=== PATIENT | female | born 1995 | race American Indian/Alaskan Native ===

== ENCOUNTER 2020-11-15 10:24 | Inpatient (IN) | payer OTHER ==
[2020-11-15] MEDS ORDERED: LACTATED RINGERS 1,000 ML IV SCH (11:30)
[2020-11-15 12:09] LABS: Bacteria,Urine 4+ /HPF (Negative); Bilirubin,Urine NEG (Negative); Blood,Urine MOD (Negative); Color,Urine Amber (Yellow); Mucus,Urine 1+ /HPF; Urobilinogen,Urine < 2.0 mg/dL (<2.0)
[2020-11-15] MEDS ORDERED: hydrALAZINE 20 MG/1 ML INJ IV PRN (12:14)
[2020-11-15 12:27] LABS: Protein,Urine >500 mg/dL (Negative)
[2020-11-15] MEDS ORDERED: MAGNESIUM SULFATE 4 GM/100 ML BAG IV ONE (12:30)
--- NOTE | 2020-11-15 12:45 | History and Physical Report ---
History of Present Illness Date of examination: 11/15/20 Date of admission: 11/15/2020 Chief complaint: I was feeling dehydrated and I was having some nausea. History of present illness: Pt is a very poor historian. She has given many different versions of her pregna ncy, medical, and surgical history. She is a @ 23.5 wks by stated LMP (June 02, 2020). Previous c-sections X1 both in 2017. States for all pregnancies she had pre eclampsia, but never was diagnosed with cHTN. She has not had care this . According to the patient she visited an office one time for this and was given an EDC of February 152020. This provider was called, and they stated that they told the patient that she needed to have a complete scan. An EDC was not assigned. Her OB history is a follows: 1. 2017 @ 24 wks d/t elevated blood pressure, demise 2. 2016 c- section @ 28 wks d/t elevated blood pressures. 3. 2019 SAB @ 8wks, no D&C, was discharged home 4. January 2020 which patient states that she was seen by MD for her visit. She does not remember gestational age of this . She was told during that visit that she had high blood pressure and was sent over to the hospital. While at the hospital patient states that she had a demise of twins. States that she was admitted for 2 or 3 days and then sent home. 5. Cu rrent . Pt was prescribed 300mg Labetalol and Procardia (does not remember dosage). She states that she only refilled her Labetalol and has not taken it in 4 days because she has been nauseous. She denies BEAN SORTER history/abnormal PAP, and other medical history. Her other surgical history inc luded a cholesectomy. Admits to smoking marijuana. After review of her records from previous delivery which occurred in 2018: she presented to L&D with a c/o abdominal pain in July. U/s was performed and she was diagnosed with an IUFD. She was measuring 19 wks via u/s, but clinically she was supposed to be 28.1 wks. She delivered vaginally. After delivery she was diagnosed with an sepsis, endometritis, and bactermia. She also had high blood pressure during that admission. Still awaiting records for c-sections that occurred in 2017. Past History Past Medical History: hypertension (Possible HTN outside of ) Past Surgical History: cholecystectomy, section (X2, 2017) Family/Genetic History: none Social history: single, smoking (Marijuana) - Obstetrical History Expected Date of Delivery: 02/15/21 (Per patient, date given 2-3 wks ago) Actual Gestation: 26 Week(s) 6 Day(s) : 5 Para: 4 Hx # Term Pregnancies: 0 Number of Pregnancies: 2 Spontaneous Abortions: 1 Induced : 0 Number of Living Children: 1 Medications and Allergies Allergies Allergy/AdvReac Type Severity Reaction Status Date / Time No Known Allergies Allergy Verified 11/15/20 11:20 Active Meds: Active Medications Betamethasone Acet/Betameth SodPhos (Betamet Acet/Betamet Na Ph 6 Mg/Ml Inj 5 Ml Mdv) 12 mg IM Q24H LISANDRO Stop: 11/16/20 13:01 Hydralazine HCl (Hydralazine 20 Mg/1 Ml Inj) 10 mg IV ONCE PRN PRN Reason: Hypertension Lactated Ringer's (Lactated Ringers) 1,000 mls @ 125 mls/hr IV DIRECT LISANDRO Magnesium Sulfate (Magnesium Sulfate 4gm/100ml) 4 gm in 100 mls @ 300 mls/hr IV ONCE ONE Stop: 11/15/20 12:49 Magnesium Sulfate (Magnesium Sulfate 40gm/1000ml) 40 gm in 1,000 mls @ 50 mls/hr IV DIRECT LISANDRO Labetalol HCl (Labetalol 100 Mg Tab) 300 mg PO TID LISANDRO Review of Systems All systems: negative - Vital Signs Vital signs: Vital Signs Temp Pulse Resp BP Pulse Ox 98.8 F 74 20 166/116 97 11/15/20 11:20 11/15/20 11:20 11/15/20 11:20 11/15/20 11:20 11/15/20 11:20 Temp Pulse Resp BP Pulse Ox 98.8 F 60 20 180/113 100 11/15/20 11:20 11/15/20 12:38 11/15/20 11:20 11/15/20 12:38 11/15/20 12:37 Pt denies JOHNSON, blurred vision, spots before her eyes, chest pain, shortness of breath, and upper abdominal pain. She also denies LOF, ctxs, and vaginal bleeding. Dr. Tapia aware of patient and orders placed. Will admit to labor and delivery for mag, 24 hour urine, pre eclampsia labs, and magnesium infusion. - Physical Exam Breasts: Positive: deferred Cardiovascular: Normal S1, Normal S2 Lungs: Positive: Clear to auscultation Abdomen: Positive: normal appearance, soft Genitourinary (Female): Positive: normal external genitalia, normal perenium Vulva: both: normal Vagina: Positive: normal moisture Uterus: Positive: normal size Extremities: Positive: normal Deep Tendon Reflex Grade: Normal +2 - Obstetrical FHR: category 2 (While in triage a 3 minute deceleration was noted, with recovery to baseline.) Cervical Dilatation: 0 (per Dr. Tapia) Cervical Effacement Percentage: 50 station: -4 Uterine Contraction Pattern: Regular Uterine Tone Measurement Phase: Resting Uterine Contraction Intensity: Mild Results Result Diagrams: 11/15/20 14:13 11/15/20 14:13 Abnormal lab results 11/15/20 Range/Units Unknown Urine WBC (Auto) 71.0 H (0.0-6.0) /HPF U Epithel Cells (Auto) 19.0 H (0-13.0) /HPF All other labs normal. Pre eclamspia and labs drawn on admission. Assessment and Plan A: 25 y.o. @ 26.6 wks gestation (per patient), elevated blood pressures, no pre nichol care. - Patient Problems (1) No care in current Onset Date: ~11/15/20 Current Visit: Yes Status: Acute Qualifiers: Trimester: second trimester Qualified Code(s): O09.32 - Supervision of with insufficient care, second trimester Plan to address problem: Case management consult ordered. (2) Elevated blood pressure affecting , antepartum Onset Date: ~11/15/20 Current Visit: Yes Status: Acute Plan to address problem: Admit to labor and delivery. Initiate IV, and IV fluids. Draw and pre eclampsia labs. Magnesium infusion to started. Montalvo catheter to be placed. Steroids ordered. 24 hour urine to be started. (3) with 23 completed weeks gestation Onset Date: ~11/15/20 Current Visit: Yes Status: Acute Plan to address problem: Per LMP patient is 23.5 wks, but 26.6 wks by stated EDC given. Ultrasound ordered.
[2020-11-15] MEDS ORDERED: BETAMET ACET/BETAMET NA PH 6 MG/ML INJ 5 ML MDV IM SCH (13:00)
[2020-11-15 13:04] LABS: Amphetamine Screen,Urine Negative; Benzodiazepines Screen,Urine Negative; Cocaine Screen,Urine Negative; Methadone Screen,Urine Negative; Opiate Screen,Urine Negative
[2020-11-15 13:21] LABS: Cannabinoid Screen,Urine PRESUMPTIVE POSITIVE
[2020-11-15] MEDS: LACTATED RINGERS 1,000 ML IV SCH (13:23)
[2020-11-15] MEDS: MAGNESIUM SULFATE 40GM/1000ML 40 GM/1,000 ML BAG IV SCH (13:36)
[2020-11-15] MEDS ORDERED: hydrALAZINE 20 MG/1 ML INJ IV SCH (14:00)
[2020-11-15 14:40] LABS: Hematocrit 36.8 % (30.3-42.9); Hemoglobin 12.3 gm/dl (10.1-14.3); Mean Corpuscular HGB Conc 33 % (30-34); Mean Corpuscular Volume 82 fl (79-97); Platelet Count 173 K/mm3 (140-440); Red Blood Count 4.49 M/mm3 (3.65-5.03); Red Cell Distribution Width 15.8 % (13.2-15.2)
--- NOTE | 2020-11-15 14:59 | Ultrasound Report ---
ULTRASOUND OBSTETRIC INDICATION / CLINICAL INFORMATION: WELL BEING, EFW, ELEVATED BP. Clinical Gestational Age (GA): 26 weeks 6 days TECHNIQUE: Transabdominal. COMPARISON: None available. FINDINGS: There is a single intrauterine . Biparietal Diameter = 5.96 cm = 24 weeks, 2 day(s). Head Circumference = 21.14 cm = 23 weeks, 1 day(s). Abdominal Circumference = 18.64 cm = 23 weeks, 3 day(s). Femur Length = 4.25 cm = 23 weeks, 6 day(s). Average Ultrasound Age (AUA) = 23 weeks, 5 day(s). Heart Rate: 139 beats per minute. Estimated Weight in grams (if calculated): 612 g Estimated Weight Growth Percentile (if calculated): Not calculated Position: cephalic. Placenta: anterior and free of the os. Amniotic Fluid Volume: normal Amniotic Fluid Index (MANUEL) in cm (if calculated): 17.0. IMPRESSION: 1. Single, living intrauterine with estimated sonographic age of 23 weeks, 5 day(s). No so nographic abnormality identified, though detailed anatomic survey was not performed. Signer Name: Maris Navarro MD Signed: 11/15/2020 2:54 PM Workstation Name: [id number]
[2020-11-15 15:00] LABS: Alanine Aminotransferase 12 units/L (7-56); Uric Acid 6.8 mg/dL (3.5-7.6)
[2020-11-15] MEDS ORDERED: ACETAMINOPHEN 500 MG TAB PO PRN (15:23)
[2020-11-15 15:29] LABS: Hepatitis C Virus Antibody Non-Reactive (NonReactive)
[2020-11-16] MEDS ORDERED: ALUM-MAG HYDROXIDE-SIMETHICONE 200-200-20MG/5ML ORAL LIQD 30 ML PO PRN (00:20)
--- NOTE | 2020-11-16 00:30 | Event Note ---
Date: 11/16/20 (Pt is drowsy. ) Was told by RN that patient had c/o a JOHNSON and was very drowsy. Mag level was drawn and awaiting results. Will turn magnesium infusion down to 1 gm for now and continue to monitor.
--- NOTE | 2020-11-16 01:26 | Event Note ---
Date: 11/16/20 (Mag level 8) Was informed by RN that the magnesium level was 8. Will turn off magnesium infusion for now and continue to monitor mag levels. Went to room to exam patient. She is drowsy, but ar
--- NOTE | 2020-11-16 01:29 | Progress Note ---
Assessment and Plan A: 25 y.o. no care @ 23.5 wks, elevated blood pressures, on magnesium infusion. Mag level 8. P: Magnesium turned off at this time. Continue to assess for I&O's, alertness, reflexes. Will reassess mag level at 4am. - Patient Problems (1) No care in current Onset Date: ~11/15/20 Current Visit: Yes Status: Acute Qualifiers: Trimester: second trimester Qualified Code(s): O09.32 - Supervision of with insufficient care, second trimester (2) Elevated blood pressure affecting , antepartum Onset Date: ~11/15/20 Current Visit: Yes Status: Acute (3) with 23 completed weeks gestation Onset Date: ~11/15/20 Current Visit: Yes Status: Acute Subjective - Subjective Date of service: 11/16/20 (Mag level of 8.) Principal diagnosis: IUP @ 23.6 wks by LMP and triage u/s on 11/15 Objective - Vital Signs Vital Signs: Vital Signs - 12hr 11/15/20 11/15/20 11/15/20 13:33 13:38 13:40 Temperature Pulse Rate 103 H 93 H 96 H Respiratory Rate Blood Pressure 162/101 Blood Pressure [Left] O2 Sat by Pulse 98 98 Oximetry 11/15/20 11/15/20 11/15/20 13:43 13:48 13:53 Temperature Pulse Rate 83 86 91 H Respiratory Rate Blood Pressure 165/101 Blood Pressure [Left] O2 Sat by Pulse 98 98 99 Oximetry 11/15/20 11/15/20 11/15/20 13:58 14:03 14:08 Temperature Pulse Rate 86 94 H 84 Respiratory Rate Blood Pressure 146/89 Blood Pressure [Left] O2 Sat by Pulse 98 98 98 Oximetry 11/15/20 11/15/20 11/15/20 14:13 14:18 14:23 Temperature Pulse Rate 87 89 93 H Respiratory Rate Blood Pressure 134/78 Blood Pressure [Left] O2 Sat by Pulse 98 98 99 Oximetry 11/15/20 11/15/20 11/15/20 14:28 14:33 14:38 Temperature Pulse Rate 83 80 68 Respiratory Rate Blood Pressure 129/77 Blood Pressure [Left] O2 Sat by Pulse 99 98 98 Oximetry 03/16/21 03/16/21 03/16/21 14:43 14:48 14:53 Temperature Pulse Rate 67 70 84 Respiratory Rate Blood Pressure Blood Pressure [Left] O2 Sat by Pulse 98 98 98 Oximetry 11/15/20 11/15/20 11/15/20 14:58 15:03 15:08 Temperature Pulse Rate 64 82 76 Respiratory Rate Blood Pressure Blood Pressure [Left] O2 Sat by Pulse 99 99 99 Oximetry 11/15/20 11/15/20 11/15/20 15:13 15:18 15:19 Temperature Pulse Rate 69 74 62 Respiratory Rate Blood Pressure 134/90 Blood Pressure [Left] O2 Sat by Pulse 99 99 Oximetry 11/15/20 11/15/20 11/15/20 15:23 15:28 15:33 Temperature Pulse Rate 83 64 66 Respiratory Rate Blood Pressure Blood Pressure [Left] O2 Sat by Pulse 99 99 99 Oximetry 11/15/20 11/15/20 11/15/20 15:38 15:43 15:48 Temperature Pulse Rate 66 75 76 Respiratory Rate Blood Pressure Blood Pressure [Left] O2 Sat by Pulse 99 99 99 Oximetry 11/15/20 11/15/20 11/15/20 15:49 15:53 15:58 Temperature 98.0 F Pulse Rate 70 70 79 Respiratory 18 Rate Blood Pressure 137/87 Blood Pressure 137/87 [Left] O2 Sat by Pulse 99 99 99 Oximetry 11/15/20 11/15/20 11/15/20 16:03 16:08 16:13 Temperature Pulse Rate 70 76 76 Respiratory Rate Blood Pressure Blood Pressure [Left] O2 Sat by Pulse 99 99 99 Oximetry 11/15/20 11/15/20 11/15/20 16:18 16:20 16:23 Temperature Pulse Rate 80 63 72 Respiratory Rate Blood Pressure 142/88 Blood Pressure [Left] O2 Sat by Pulse 99 99 Oximetry 11/15/20 11/15/20 11/15/20 16:28 16:33 16:38 Temperature Pulse Rate 65 72 65 Respiratory Rate Blood Pressure Blood Pressure [Left] O2 Sat by Pulse 98 98 98 Oximetry 11/15/20 11/15/20 11/15/20 16:43 16:48 16:49 Temperature Pulse Rate 67 66 71 Respiratory Rate Blood Pressure 140/84 Blood Pressure [Left] O2 Sat by Pulse 97 98 Oximetry 11/15/20 11/15/20 11/15/20 16:53 16:58 17:03 Temperature Pulse Rate 66 67 72 Respiratory Rate Blood Pressure Blood Pressure [Left] O2 Sat by Pulse 98 98 98 Oximetry 11/15/20 11/15/20 11/15/20 17:08 17:13 17:18 Temperature Pulse Rate 69 71 60 Respiratory Rate Blood Pressure Blood Pressure [Left] O2 Sat by Pulse 98 98 98 Oximetry 11/15/20 11/15/20 11/15/20 17:20 17:23 17:28 Temperature Pulse Rate 66 65 71 Respiratory Rate Blood Pressure 136/85 Blood Pressure [Left] O2 Sat by Pulse 98 98 Oximetry 11/15/20 11/15/20 11/15/20 17:33 17:38 17:43 Temperature Pulse Rate 95 H 59 L 75 Respiratory Rate Blood Pressure Blood Pressure [Left] O2 Sat by Pulse 97 99 98 Oximetry 11/15/20 11/15/20 11/15/20 17:48 17:49 17:53 Temperature Pulse Rate 69 68 66 Respiratory Rate Blood Pressure 132/86 Blood Pressure [Left] O2 Sat by Pulse 98 98 Oximetry 11/15/20 11/15/20 11/15/20 17:58 18:03 18:08 Temperature Pulse Rate 69 67 75 Respiratory Rate Blood Pressure Blood Pressure [Left] O2 Sat by Pulse 98 98 98 Oximetry 11/15/20 11/15/20 11/15/20 18:13 18:18 18:19 Temperature Pulse Rate 81 82 71 Respiratory Rate Blood Pressure 134/84 Blood Pressure [Left] O2 Sat by Pulse 98 98 Oximetry 11/15/20 11/15/20 11/15/20 18:23 18:28 18:33 Temperature Pulse Rate 72 70 72 Respiratory Rate Blood Pressure Blood Pressure [Left] O2 Sat by Pulse 98 98 98 Oximetry 11/15/20 11/15/20 11/15/20 18:38 18:43 18:48 Temperature Pulse Rate 72 70 67 Respiratory Rate Blood Pressure Blood Pressure [Left] O2 Sat by Pulse 98 98 98 Oximetry 11/15/20 11/15/20 11/15/20 18:49 18:53 18:58 Temperature Pulse Rate 77 60 65 Respiratory Rate Blood Pressure 133/85 Blood Pressure [Left] O2 Sat by Pulse 98 98 Oximetry 11/15/20 11/15/20 11/15/20 19:00 19:03 19:08 Temperature 97.6 F Pulse Rate 62 61 Respiratory 18 Rate Blood Pressure Blood Pressure [Left] O2 Sat by Pulse 99 98 98 Oximetry 11/15/20 11/15/20 11/15/20 19:13 19:18 19:19 Temperature Pulse Rate 64 66 67 Respiratory Rate Blood Pressure 134/85 Blood Pressure [Left] O2 Sat by Pulse 98 98 Oximetry 11/15/20 11/15/20 11/15/20 19:23 19:28 19:33 Temperature Pulse Rate 69 65 68 Respiratory Rate Blood Pressure Blood Pressure [Left] O2 Sat by Pulse 98 98 99 Oximetry 11/15/20 11/15/20 11/15/20 19:38 19:43 19:48 Temperature Pulse Rate 71 72 72 Respiratory Rate Blood Pressure Blood Pressure [Left] O2 Sat by Pulse 99 99 99 Oximetry 11/15/20 11/15/20 11/15/20 19:49 19:53 19:58 Temperature Pulse Rate 77 87 70 Respiratory Rate Blood Pressure 144/86 Blood Pressure [Left] O2 Sat by Pulse 99 100 Oximetry 11/15/20 11/15/20 11/15/20 20:03 20:08 20:13 Temperature Pulse Rate 64 72 88 Respiratory Rate Blood Pressure Blood Pressure [Left] O2 Sat by Pulse 98 98 99 Oximetry 11/15/20 11/15/20 11/15/20 20:18 20:21 20:23 Temperature Pulse Rate 88 73 81 Respiratory Rate Blood Pressure 140/90 Blood Pressure [Left] O2 Sat by Pulse 98 98 Oximetry 11/15/20 11/15/20 11/15/20 20:28 20:33 20:38 Temperature Pulse Rate 67 75 68 Respiratory Rate Blood Pressure Blood Pressure [Left] O2 Sat by Pulse 99 99 98 Oximetry 11/15/20 11/15/20 11/15/20 20:43 20:48 20:49 Temperature Pulse Rate 78 73 74 Respiratory Rate Blood Pressure 136/85 Blood Pressure [Left] O2 Sat by Pulse 99 99 Oximetry 11/15/20 11/15/20 11/15/20 20:53 20:58 21:00 Temperature Pulse Rate 79 85 Respiratory 16 Rate Blood Pressure Blood Pressure [Left] O2 Sat by Pulse 98 98 100 Oximetry 11/15/20 11/15/20 11/15/20 21:03 21:08 21:13 Temperature Pulse Rate 80 76 78 Respiratory Rate Blood Pressure Blood Pressure [Left] O2 Sat by Pulse 98 98 99 Oximetry 11/15/20 11/15/20 11/15/20 21:18 21:19 21:23 Temperature Pulse Rate 69 78 86 Respiratory Rate Blood Pressure 134/90 Blood Pressure [Left] O2 Sat by Pulse 98 98 Oximetry 11/15/20 11/15/20 11/15/20 21:28 21:33 21:38 Temperature Pulse Rate 90 81 73 Respiratory Rate Blood Pressure Blood Pressure [Left] O2 Sat by Pulse 100 99 99 Oximetry 11/15/20 11/15/20 11/15/20 21:43 21:48 21:50 Temperature Pulse Rate 72 68 79 Respiratory Rate Blood Pressure 135/84 Blood Pressure [Left] O2 Sat by Pulse 99 99 Oximetry 11/15/20 11/15/20 11/15/20 21:53 21:58 22:03 Temperature Pulse Rate 77 76 87 Respiratory Rate Blood Pressure Blood Pressure [Left] O2 Sat by Pulse 98 99 99 Oximetry 11/15/20 11/15/20 11/15/20 22:08 22:13 22:18 Temperature Pulse Rate 89 78 67 Respiratory Rate Blood Pressure Blood Pressure [Left] O2 Sat by Pulse 98 99 99 Oximetry 11/15/20 11/15/20 11/15/20 22:19 22:23 22:28 Temperature Pulse Rate 72 78 80 Respiratory Rate Blood Pressure 132/88 Blood Pressure [Left] O2 Sat by Pulse 99 98 Oximetry 11/15/20 11/15/20 11/15/20 22:33 22:38 22:43 Temperature Pulse Rate 81 69 78 Respiratory Rate Blood Pressure Blood Pressure [Left] O2 Sat by Pulse 99 99 99 Oximetry 11/15/20 11/15/20 11/15/20 22:48 22:49 22:53 Temperature Pulse Rate 77 68 72 Respiratory Rate Blood Pressure 131/87 Blood Pressure [Left] O2 Sat by Pulse 98 99 Oximetry 11/15/20 11/15/20 11/15/20 22:58 23:00 23:03 Temperature Pulse Rate 89 85 Respiratory 19 Rate Blood Pressure Blood Pressure [Left] O2 Sat by Pulse 97 99 Oximetry 11/15/20 11/15/20 11/15/20 23:08 23:13 23:18 Temperature Pulse Rate 76 73 86 Respiratory Rate Blood Pressure Blood Pressure [Left] O2 Sat by Pulse 99 99 99 Oximetry 11/15/20 11/15/20 11/15/20 23:19 23:23 23:26 Temperature Pulse Rate 75 66 92 H Respiratory Rate Blood Pressure 154/99 Blood Pressure [Left] O2 Sat by Pulse 98 93 Oximetry 11/15/20 11/15/20 11/15/20 23:29 23:34 23:39 Temperature Pulse Rate 72 65 68 Respiratory Rate Blood Pressure Blood Pressure [Left] O2 Sat by Pulse 99 100 100 Oximetry 11/15/20 11/15/20 11/15/20 23:44 23:49 23:54 Temperature Pulse Rate 65 65 64 Respiratory Rate Blood Pressure 122/77 Blood Pressure [Left] O2 Sat by Pulse 100 100 99 Oximetry 11/15/20 11/16/20 11/16/20 23:59 00:04 00:09 Temperature Pulse Rate 66 66 74 Respiratory Rate Blood Pressure Blood Pressure [Left] O2 Sat by Pulse 99 99 99 Oximetry 11/16/20 11/16/20 11/16/20 00:14 00:19 00:24 Temperature Pulse Rate 73 62 67 Respiratory Rate Blood Pressure 108/59 Blood Pressure [Left] O2 Sat by Pulse 98 99 99 Oximetry 11/16/20 11/16/20 11/16/20 00:29 00:34 00:39 Temperature Pulse Rate 69 68 61 Respiratory Rate Blood Pressure Blood Pressure [Left] O2 Sat by Pulse 98 99 98 Oximetry 11/16/20 11/16/20 11/16/20 00:44 00:49 00:54 Temperature Pulse Rate 63 61 62 Respiratory Rate Blood Pressure 128/81 Blood Pressure [Left] O2 Sat by Pulse 98 99 99 Oximetry 11/16/20 11/16/20 11/16/20 00:59 01:04 01:09 Temperature Pulse Rate 61 66 57 L Respiratory Rate Blood Pressure Blood Pressure [Left] O2 Sat by Pulse 99 99 100 Oximetry 11/16/20 11/16/20 11/16/20 01:14 01:19 01:24 Temperature Pulse Rate 61 59 L 67 Respiratory Rate Blood Pressure 117/72 Blood Pressure [Left] O2 Sat by Pulse 100 100 99 Oximetry - Exam Narrative Exam: RN came to inform provider that the mag level was 8 and patient had continued drowsiness. Went to room to exam patient. She was drowsy, but easily aroused. She was alert and oriented X 4. Magnesium was turned off at this time. Blood pressures are currently low 110's/70's. Urine output so far since insertion of catheter is 1075ml. Pt continues to deny JOHNSON, blurred vision, spots before her eyes, chest pain, shortness of breath, and upper abdominal pain. Cardiovascular: Regular rate Lungs: Normal air movement Deep Tendon Reflex Grade: Dull/Diminished +1 - Labs Labs: Abnormal Labs 11/15/20 11/15/20 11/15/20 14:13 14:13 16:47 MCH 27 L RDW 15.8 H Magnesium 6.40 H Lactate Dehydrogenase 206 H Urine WBC (Auto) U Epithel Cells (Auto) 11/15/20 11/15/20 23:52 Unknown MCH RDW Magnesium 8.00 H Lactate Dehydrogenase Urine WBC (Auto) 71.0 H U Epithel Cells (Auto) 19.0 H Laboratory Results - last 24 hr 11/15/20 11/15/20 11/15/20 14:13 14:13 14:13 WBC 6.5 RBC 4.49 Hgb 12.3 Hct 36.8 MCV 82 MCH 27 L MCHC 33 RDW 15.8 H Plt Count 173 Creatinine 0.9 Estimated GFR > 60 Uric Acid 6.8 Magnesium AST 18 ALT 12 Lactate Dehydrogenase 206 H Urine Color Urine Turbidity Urine pH Ur Specific [place] Urine Protein Urine Glucose (UA) Urine Ketones Urine Blood Urine Nitrite Urine Bilirubin Urine Urobilinogen Ur Leukocyte Esterase Urine WBC (Auto) Urine RBC (Auto) U Epithel Cells (Auto) Urine Bacteria (Auto) Urine Mucus Urine Opiates Screen Urine Methadone Screen Ur Barbiturates Screen Ur Phencyclidine Scrn Ur Amphetamines Screen U Benzodiazepines Scrn Urine Cocaine Screen U Marijuana (THC) Screen Drugs of Abuse Note Syphilis IgG Antibody Nonreactive Hep Bs Antigen Hepatitis C Antibody Non-reactive HIV 1&2 Antibody Rapid HIV P24 Antigen Rubella IgG Antibody Immune Blood Type Antibody Screen 11/15/20 11/15/20 11/15/20 14:13 14:13 16:47 WBC RBC Hgb Hct MCV MCH MCHC RDW Plt Count Creatinine Estimated GFR Uric Acid Magnesium 6.40 H AST ALT Lactate Dehydrogenase Urine Color Urine Turbidity Urine pH Ur Specific [place] Urine Protein Urine Glucose (UA) Urine Ketones Urine Blood Urine Nitrite Urine Bilirubin Urine Urobilinogen Ur Leukocyte Esterase Urine WBC (Auto) Urine RBC (Auto) U Epithel Cells (Auto) Urine Bacteria (Auto) Urine Mucus Urine Opiates Screen Urine Methadone Screen Ur Barbiturates Screen Ur Phencyclidine Scrn Ur Amphetamines Screen U Benzodiazepines Scrn Urine Cocaine Screen U Marijuana (THC) Screen Drugs of Abuse Note Syphilis IgG Antibody Hep Bs Antigen Non-reactive Hepatitis C Antibody HIV 1&2 Antibody Rapid Non react HIV P24 Antigen Non react Rubella IgG Antibody Blood Type Antibody Screen 11/15/20 11/15/20 11/15/20 16:50 23:52 Unknown WBC RBC Hgb Hct MCV MCH MCHC RDW Plt Count Creatinine Estimated GFR Uric Acid Magnesium 8.00 H AST ALT Lactate Dehydrogenase Urine Color [place] Urine Turbidity Cloudy Urine pH 6.0 Ur Specific [place] 1.023 Urine Protein >500 Urine Glucose (UA) Neg Urine Ketones 20 Urine Blood Mod Urine Nitrite Neg Urine Bilirubin Neg Urine Urobilinogen < 2.0 Ur Leukocyte Esterase Mod Urine WBC (Auto) 71.0 H Urine RBC (Auto) 10.0 U Epithel Cells (Auto) 19.0 H Urine Bacteria (Auto) 4+ Urine Mucus 1+ Urine Opiates Screen Urine Methadone Screen Ur Barbiturates Screen Ur Phencyclidine Scrn Ur Amphetamines Screen U Benzodiazepines Scrn Urine Cocaine Screen U Marijuana (THC) Screen Drugs of Abuse Note Syphilis IgG Antibody Hep Bs Antigen Hepatitis C Antibody HIV 1&2 Antibody Rapid HIV P24 Antigen Rubella IgG Antibody Blood Type O POSITIVE Antibody Screen Negative 11/15/20 Unknown WBC RBC Hgb Hct MCV MCH MCHC RDW Plt Count Creatinine Estimated GFR Uric Acid Magnesium AST ALT Lactate Dehydrogenase Urine Color Urine Turbidity Urine pH Ur Specific [place] Urine Protein Urine Glucose (UA) Urine Ketones Urine Blood Urine Nitrite Urine Bilirubin Urine Urobilinogen Ur Leukocyte Esterase Urine WBC (Auto) Urine RBC (Auto) U Epithel Cells (Auto) Urine Bacteria (Auto) Urine Mucus Urine Opiates Screen Negative Urine Methadone Screen Negative Ur Barbiturates Screen Negative Ur Phencyclidine Scrn Negative Ur Amphetamines Screen Negative U Benzodiazepines Scrn Negative Urine Cocaine Screen Negative U Marijuana (THC) Screen Presumptive positive Drugs of Abuse Note Disclamer Syphilis IgG Antibody Hep Bs Antigen Hepatitis C Antibody HIV 1&2 Antibody Rapid HIV P24 Antigen Rubella IgG Antibody Blood Type Antibody Screen
[2020-11-16] MEDS: MAGNESIUM SULFATE 40GM/1000ML 40 GM/1,000 ML BAG IV SCH (01:35)
[2020-11-16] MEDS: LACTATED RINGERS 1,000 ML IV SCH ×2 (01:47→07:22)
--- NOTE | 2020-11-16 08:18 | Progress Note ---
Assessment and Plan - Patient Problems (1) 24 weeks gestation of Onset Date: ~11/16/20 Current Visit: Yes Status: Acute Plan to address problem: MGSO4 off overnight due to mag level of 8. Pt is now not symptomatic and 0530 mag level is 4.9 Will resume MGSO4 @ 1gm/hr for neuro protection. Stressed accurate monitoring of I&O. Second dose BMZ due today @ 1300. No ctx noted @ time of rounds Will continue close mahsa toring. NICU consult ordered. (2) Pre-eclampsia affecting , antepartum Onset Date: ~11/15/20 Current Visit: Yes Status: Acute Plan to address problem: Pt presented 11/15/20 with BP in the severe range. As noted she is a poor historian and has a poor reproductive history. Pt is now on Labetalol 300mg BID. She did receive 1 dose of Apresoline yesterday @ 1305. BPs 140-110/90-50. Pt denies JOHNSON, blurred vision, chest pain this AM. 24hr urine collection ongoing to be completed @ 1450 today. As noted MGSO4@1gm/hr for neuro protection infusing. Close monitoring of BP and I&O reviewed with RN. Subjective - Subjective Date of service: 11/16/20 (resting; states her back hurts from the bed) Principal diagnosis: IUP @ 22w0d wks by LMP and triage u/s on 11/15 Patient reports: movement normal Objective - Vital Signs Vital Signs: Vital Signs - 12hr 11/15/20 11/15/20 11/15/20 20:18 20:21 20:23 Temperature Pulse Rate 88 73 81 Respiratory Rate Blood Pressure 140/90 O2 Sat by Pulse 98 98 Oximetry 11/15/20 11/15/20 11/15/20 20:28 20:33 20:38 Temperature Pulse Rate 67 75 68 Respiratory Rate Blood Pressure O2 Sat by Pulse 99 99 98 Oximetry 11/15/20 11/15/20 11/15/20 20:43 20:48 20:49 Temperature Pulse Rate 78 73 74 Respiratory Rate Blood Pressure 136/85 O2 Sat by Pulse 99 99 Oximetry 11/15/20 11/15/20 11/15/20 20:53 20:58 21:00 Temperature Pulse Rate 79 85 Respiratory 16 Rate Blood Pressure O2 Sat by Pulse 98 98 100 Oximetry 0311/15/20 11/15/20 21:03 21:08 21:13 Temperature Pulse Rate 80 76 78 Respiratory Rate Blood Pressure O2 Sat by Pulse 98 98 99 Oximetry 11/15/20 11/15/20 11/15/20 21:18 21:19 21:23 Temperature Pulse Rate 69 78 86 Respiratory Rate Blood Pressure 134/90 O2 Sat by Pulse 98 98 Oximetry 11/15/20 11/15/20 11/15/20 21:28 21:33 21:38 Temperature Pulse Rate 90 81 73 Respiratory Rate Blood Pressure O2 Sat by Pulse 100 99 99 Oximetry 11/15/20 11/15/20 11/15/20 21:43 21:48 21:50 Temperature Pulse Rate 72 68 79 Respiratory Rate Blood Pressure 135/84 O2 Sat by Pulse 99 99 Oximetry 11/15/20 11/15/20 11/15/20 21:53 21:58 22:03 Temperature Pulse Rate 77 76 87 Respiratory Rate Blood Pressure O2 Sat by Pulse 98 99 99 Oximetry 11/15/20 11/15/20 11/15/20 22:08 22:13 22:18 Temperature Pulse Rate 89 78 67 Respiratory Rate Blood Pressure O2 Sat by Pulse 98 99 99 Oximetry 11/15/20 11/15/20 11/15/20 22:19 22:23 22:28 Temperature Pulse Rate 72 78 80 Respiratory Rate Blood Pressure 132/88 O2 Sat by Pulse 99 98 Oximetry 11/15/20 11/15/20 11/15/20 22:33 22:38 22:43 Temperature Pulse Rate 81 69 78 Respiratory Rate Blood Pressure O2 Sat by Pulse 99 99 99 Oximetry 11/15/20 11/15/20 11/15/20 22:48 22:49 22:53 Temperature Pulse Rate 77 68 72 Respiratory Rate Blood Pressure 131/87 O2 Sat by Pulse 98 99 Oximetry 11/15/20 11/15/20 11/15/20 22:58 23:00 23:03 Temperature Pulse Rate 89 85 Respiratory 19 Rate Blood Pressure O2 Sat by Pulse 97 99 Oximetry 11/15/20 11/15/20 11/15/20 23:08 23:13 23:18 Temperature Pulse Rate 76 73 86 Respiratory Rate Blood Pressure O2 Sat by Pulse 99 99 99 Oximetry 11/15/20 11/15/20 11/15/20 23:19 23:23 23:26 Temperature Pulse Rate 75 66 92 H Respiratory Rate Blood Pressure 154/99 O2 Sat by Pulse 98 93 Oximetry 11/15/20 11/15/20 11/15/20 23:29 23:34 23:39 Temperature Pulse Rate 72 65 68 Respiratory Rate Blood Pressure O2 Sat by Pulse 99 100 100 Oximetry 11/15/20 11/15/20 11/15/20 23:44 23:49 23:54 Temperature Pulse Rate 65 65 64 Respiratory Rate Blood Pressure 122/77 O2 Sat by Pulse 100 100 99 Oximetry 11/15/20 11/16/20 11/16/20 23:59 00:04 00:09 Temperature Pulse Rate 66 66 74 Respiratory Rate Blood Pressure O2 Sat by Pulse 99 99 99 Oximetry 11/16/20 11/16/20 11/16/20 00:14 00:19 00:24 Temperature Pulse Rate 73 62 67 Respiratory Rate Blood Pressure 108/59 O2 Sat by Pulse 98 99 99 Oximetry 11/16/20 11/16/20 11/16/20 00:29 00:34 00:39 Temperature Pulse Rate 69 68 61 Respiratory Rate Blood Pressure O2 Sat by Pulse 98 99 98 Oximetry 11/16/20 11/16/20 11/16/20 00:44 00:49 00:54 Temperature Pulse Rate 63 61 62 Respiratory Rate Blood Pressure 128/81 O2 Sat by Pulse 98 99 99 Oximetry 11/16/20 11/16/20 11/16/20 00:59 01:00 01:04 Temperature 98.5 F Pulse Rate 61 66 Respiratory 15 Rate Blood Pressure O2 Sat by Pulse 99 98 99 Oximetry 11/16/20 11/16/20 11/16/20 01:09 01:14 01:19 Temperature Pulse Rate 57 L 61 59 L Respiratory Rate Blood Pressure 117/72 O2 Sat by Pulse 100 100 100 Oximetry 11/16/20 11/16/20 11/16/20 01:24 01:29 01:34 Temperature Pulse Rate 67 58 L 63 Respiratory Rate Blood Pressure O2 Sat by Pulse 99 99 99 Oximetry 11/16/20 11/16/20 11/16/20 01:39 01:44 01:49 Temperature Pulse Rate 62 63 60 Respiratory Rate Blood Pressure 119/73 O2 Sat by Pulse 98 99 99 Oximetry 11/16/20 11/16/20 11/16/20 01:54 01:59 02:04 Temperature Pulse Rate 66 64 59 L Respiratory Rate Blood Pressure O2 Sat by Pulse 99 100 99 Oximetry 11/16/20 11/16/20 11/16/20 02:09 02:14 02:19 Temperature Pulse Rate 56 L 60 59 L Respiratory Rate Blood Pressure 121/75 O2 Sat by Pulse 98 99 99 Oximetry 11/16/20 11/16/20 11/16/20 02:24 02:29 02:34 Temperature Pulse Rate 58 L 63 63 Respiratory Rate Blood Pressure O2 Sat by Pulse 98 98 99 Oximetry 11/16/20 11/16/20 11/16/20 02:39 02:44 02:49 Temperature Pulse Rate 84 54 L 56 L Respiratory Rate Blood Pressure 140/93 O2 Sat by Pulse 99 100 100 Oximetry 11/16/20 11/16/20 11/16/20 02:54 02:59 03:00 Temperature Pulse Rate 73 72 73 Respiratory 16 Rate Blood Pressure O2 Sat by Pulse 100 100 99 Oximetry 11/16/20 11/16/20 11/16/20 03:04 03:09 03:14 Temperature Pulse Rate 66 61 62 Respiratory Rate Blood Pressure O2 Sat by Pulse 100 100 100 Oximetry 11/16/20 11/16/20 11/16/20 03:19 03:24 03:29 Temperature Pulse Rate 63 66 71 Respiratory Rate Blood Pressure 131/84 O2 Sat by Pulse 100 99 99 Oximetry 11/16/20 11/16/20 11/16/20 03:34 03:39 03:44 Temperature Pulse Rate 70 73 74 Respiratory Rate Blood Pressure O2 Sat by Pulse 99 99 99 Oximetry 11/16/20 11/16/20 11/16/20 03:49 03:54 03:59 Temperature Pulse Rate 65 64 63 Respiratory Rate Blood Pressure 103/55 O2 Sat by Pulse 99 98 98 Oximetry 11/16/20 11/16/20 11/16/20 04:04 04:09 04:14 Temperature Pulse Rate 69 72 71 Respiratory Rate Blood Pressure O2 Sat by Pulse 98 98 98 Oximetry 11/16/20 11/16/20 11/16/20 04:19 04:24 04:29 Temperature Pulse Rate 71 71 71 Respiratory Rate Blood Pressure 117/67 O2 Sat by Pulse 98 98 98 Oximetry 11/16/20 11/16/20 11/16/20 04:34 04:39 04:44 Temperature Pulse Rate 71 71 70 Respiratory Rate Blood Pressure O2 Sat by Pulse 98 98 98 Oximetry 11/16/20 11/16/20 11/16/20 04:49 04:54 04:59 Temperature Pulse Rate 69 70 68 Respiratory Rate Blood Pressure 119/70 O2 Sat by Pulse 98 97 98 Oximetry 11/16/20 11/16/20 11/16/20 05:00 05:04 05:09 Temperature Pulse Rate 78 69 Respiratory 20 Rate Blood Pressure O2 Sat by Pulse 99 97 97 Oximetry 11/16/20 11/16/20 11/16/20 05:14 05:19 05:24 Temperature Pulse Rate 59 L 61 64 Respiratory Rate Blood Pressure 102/58 O2 Sat by Pulse 99 98 97 Oximetry 11/16/20 11/16/20 11/16/20 05:29 05:34 05:39 Temperature Pulse Rate 72 63 74 Respiratory Rate Blood Pressure O2 Sat by Pulse 98 98 97 Oximetry 11/16/20 11/16/20 11/16/20 05:44 05:49 05:54 Temperature Pulse Rate 71 66 63 Respiratory Rate Blood Pressure 100/56 O2 Sat by Pulse 99 99 99 Oximetry 11/16/20 11/16/20 11/16/20 05:59 06:04 06:09 Temperature Pulse Rate 83 63 65 Respiratory Rate Blood Pressure O2 Sat by Pulse 98 98 98 Oximetry 11/16/20 11/16/20 11/16/20 06:14 06:19 06:20 Temperature Pulse Rate 62 61 61 Respiratory Rate Blood Pressure 104/55 O2 Sat by Pulse 98 97 Oximetry 11/16/20 11/16/20 11/16/20 06:24 06:29 06:34 Temperature Pulse Rate 65 78 84 Respiratory Rate Blood Pressure O2 Sat by Pulse 98 97 98 Oximetry 11/16/20 11/16/20 11/16/20 06:39 06:44 06:49 Temperature Pulse Rate 88 85 78 Respiratory Rate Blood Pressure 111/62 O2 Sat by Pulse 98 96 98 Oximetry 11/16/20 11/16/20 11/16/20 06:54 06:59 07:04 Temperature Pulse Rate 78 74 61 Respiratory Rate Blood Pressure O2 Sat by Pulse 98 98 98 Oximetry 11/16/20 11/16/20 11/16/20 07:09 07:14 07:19 Temperature Pulse Rate 66 64 61 Respiratory Rate Blood Pressure 118/69 O2 Sat by Pulse 98 98 98 Oximetry 11/16/20 11/16/20 11/16/20 07:24 07:29 07:34 Temperature Pulse Rate 77 83 79 Respiratory Rate Blood Pressure O2 Sat by Pulse 98 99 99 Oximetry 11/16/20 11/16/20 11/16/20 07:39 07:44 07:49 Temperature Pulse Rate 79 63 58 L Respiratory Rate Blood Pressure 139/83 O2 Sat by Pulse 98 100 100 Oximetry 11/16/20 11/16/20 11/16/20 07:54 07:59 08:04 Temperature Pulse Rate 65 60 60 Respiratory Rate Blood Pressure O2 Sat by Pulse 100 100 100 Oximetry 11/16/20 11/16/20 08:09 08:13 Temperature Pulse Rate 62 82 Respiratory Rate Blood Pressure O2 Sat by Pulse 99 91 Oximetry - Exam Breasts: deferred Cardiovascular: Regular rate Lungs: Clear to auscultation (lungs clear bilateral Pt has no SOB is A&O X 3) Abdomen: Present: normal appearance, soft. Absent: distention, tenderness Uterus: Present: normal FHR: auscultation normal Uterine Contraction Monitor Mode: External Uterine Contraction Pattern: Absent Uterine Tone Measurement Phase: Resting Extremities: normal Deep Tendon Reflex Grade: Normal +2 - Labs Labs: Abnormal Labs 11/15/20 11/15/20 11/15/20 14:13 14:13 16:47 MCH 27 L RDW 15.8 H Magnesium 6.40 H Lactate Dehydrogenase 206 H Urine WBC (Auto) U Epithel Cells (Auto) 11/15/20 11/15/20 11/16/20 23:52 Unknown 05:58 MCH RDW Magnesium 8.00 H 4.90 H Lactate Dehydrogenase Urine WBC (Auto) 71.0 H U Epithel Cells (Auto) 19.0 H Laboratory Results - last 24 hr 11/15/20 11/15/20 11/15/20 14:13 14:13 14:13 WBC 6.5 RBC 4.49 Hgb 12.3 Hct 36.8 MCV 82 MCH 27 L MCHC 33 RDW 15.8 H Plt Count 173 Creatinine 0.9 Estimated GFR > 60 Uric Acid 6.8 Magnesium AST 18 ALT 12 Lactate Dehydrogenase 206 H Urine Color Urine Turbidity Urine pH Ur Specific [place] Urine Protein Urine Glucose (UA) Urine Ketones Urine Blood Urine Nitrite Urine Bilirubin Urine Urobilinogen Ur Leukocyte Esterase Urine WBC (Auto) Urine RBC (Auto) U Epithel Cells (Auto) Urine Bacteria (Auto) Urine Mucus Urine Opiates Screen Urine Methadone Screen Ur Barbiturates Screen Ur Phencyclidine Scrn Ur Amphetamines Screen U Benzodiazepines Scrn Urine Cocaine Screen U Marijuana (THC) Screen Drugs of Abuse Note Syphilis IgG Antibody Nonreactive Hep Bs Antigen Hepatitis C Antibody Non-reactive HIV 1&2 Antibody Rapid HIV P24 Antigen Rubella IgG Antibody Immune Blood Type Antibody Screen 11/15/20 11/15/20 11/15/20 14:13 14:13 16:47 WBC RBC Hgb Hct MCV MCH MCHC RDW Plt Count Creatinine Estimated GFR Uric Acid Magnesium 6.40 H AST ALT Lactate Dehydrogenase Urine Color Urine Turbidity Urine pH Ur Specific [place] Urine Protein Urine Glucose (UA) Urine Ketones Urine Blood Urine Nitrite Urine Bilirubin Urine Urobilinogen Ur Leukocyte Esterase Urine WBC (Auto) Urine RBC (Auto) U Epithel Cells (Auto) Urine Bacteria (Auto) Urine Mucus Urine Opiates Screen Urine Methadone Screen Ur Barbiturates Screen Ur Phencyclidine Scrn Ur Amphetamines Screen U Benzodiazepines Scrn Urine Cocaine Screen U Marijuana (THC) Screen Drugs of Abuse Note Syphilis IgG Antibody Hep Bs Antigen Non-reactive Hepatitis C Antibody HIV 1&2 Antibody Rapid Non react HIV P24 Antigen Non react Rubella IgG Antibody Blood Type Antibody Screen 11/15/20 11/15/20 11/15/20 16:50 23:52 Unknown WBC RBC Hgb Hct MCV MCH MCHC RDW Plt Count Creatinine Estimated GFR Uric Acid Magnesium 8.00 H AST ALT Lactate Dehydrogenase Urine Color Evelin Urine Turbidity Cloudy Urine pH 6.0 Ur Specific [place] 1.023 Urine Protein >500 Urine Glucose (UA) Neg Urine Ketones 20 Urine Blood Mod Urine Nitrite Neg Urine Bilirubin Neg Urine Urobilinogen < 2.0 Ur Leukocyte Esterase Mod Urine WBC (Auto) 71.0 H Urine RBC (Auto) 10.0 U Epithel Cells (Auto) 19.0 H Urine Bacteria (Auto) 4+ Urine Mucus 1+ Urine Opiates Screen Urine Methadone Screen Ur Barbiturates Screen Ur Phencyclidine Scrn Ur Amphetamines Screen U Benzodiazepines Scrn Urine Cocaine Screen U Marijuana (THC) Screen Drugs of Abuse Note Syphilis IgG Antibody Hep Bs Antigen Hepatitis C Antibody HIV 1&2 Antibody Rapid HIV P24 Antigen Rubella IgG Antibody Blood Type O POSITIVE Antibody Screen Negative 11/15/20 11/16/20 Unknown 05:58 WBC RBC Hgb Hct MCV MCH MCHC RDW Plt Count Creatinine Estimated GFR Uric Acid Magnesium 4.90 H AST ALT Lactate Dehydrogenase Urine Color Urine Turbidity Urine pH Ur Specific [place] Urine Protein Urine Glucose (UA) Urine Ketones Urine Blood Urine Nitrite Urine Bilirubin Urine Urobilinogen Ur Leukocyte Esterase Urine WBC (Auto) Urine RBC (Auto) U Epithel Cells (Auto) Urine Bacteria (Auto) Urine Mucus Urine Opiates Screen Negative Urine Methadone Screen Negative Ur Barbiturates Screen Negative Ur Phencyclidine Scrn Negative Ur Amphetamines Screen Negative U Benzodiazepines Scrn Negative Urine Cocaine Screen Negative U Marijuana (THC) Screen Presumptive positive Drugs of Abuse Note Disclamer Syphilis IgG Antibody Hep Bs Antigen Hepatitis C Antibody HIV 1&2 Antibody Rapid HIV P24 Antigen Rubella IgG Antibody Blood Type Antibody Screen
[2020-11-16 09:58] VITALS: BP 118/69
[2020-11-16] MEDS ORDERED: PRENATAL VIT27-FE FUMARATE-FOLIC ACID VIT TAB PO SCH (10:00)
== END 2020-11-16 08:30 | disposition home or self-care (01) | DRG 781 ==
LOC: TRG 10:24 → LD 10:25 → APU 10:28 → LD 12:14 → TRG 12:14
PROVIDERS: ADMIT Obstetrics & Gynecology; ATTEND Obstetrics & Gynecology
DX: O16.2 Unspecified maternal hypertension, second trimester (principal); O14.92 Unspecified pre-eclampsia, second trimester; O09.32 Supervision of pregnancy with insufficient antenatal care, second trimester; Z3A.23 23 weeks gestation of pregnancy; Z90.49 Acquired absence of other specified parts of digestive tract; Z79.899 Other long term (current) drug therapy
CPT/HCPCS: 36415; 76816; 80307; 81001; 82565; 83615; 83735; 84450; 84460; 84550; 85027; 86592; 86706; 86762; 86803; 86850; 86900; 86901; 87076; 87086; 87186; 87806; G0378; J0360; J0702; J3475; J7120